=== PATIENT | female | born 2005 | race Asian ===

== ENCOUNTER 2025-10-06 16:04 | Emergency (ER) | payer OTHER, SELFPAY ==
--- NOTE | ~2025-10-06 | XR_ITS ---
EXAMINATION: XR ankle RT min 3V, 10/06/2025 16:27 WHAT JOB TITLES MEAN HISTORY: fall on ice today. Lateral pain right ankle pain, no surg COMPARISON: No comparisons available. Findings: No acute fracture or malalignment. No significant degenerative changes. Soft tissues unremarkable. Impression: No acute fracture or malalignment. Reviewed, dictated and finalized at location P. JOB TITLES MEAN Impression: No acute fracture or malalignment.
[2025-10-06 16:18] VITALS: BP 108/88; PULSE 104; RESP 16; TEMP 37.3; O2SAT 100
--- NOTE | 2025-10-06 16:37 | ED_ITS ---
HPI - Extremity Injury (Lower) General Chief Complaint: Extremity Injury, Lower Stated Complaint: R Ankle Pain Time Seen by Provider: 10/06/25 16:34 Source: patient and RN notes reviewed Mode of arrival: ambulatory Limitations: no limitations History of Present Illness HPI Narrative: 19-year-old female patient presents today complaining of right lateral ankle pain today after slipping on some ice. Denies numbness or tingling. No OTC treatment prior to arrival. Rates her pain 6/10. Denies pain to foot. She has been ambulatory since the injury. Related Data Home Medications ?Medication ?Instructions ?Recorded ?Confirmed ?Last Taken ?Type No Home Medications 10/06/25 10/06/25 U nknown History Allergies Allergy/AdvReac Type Severity Reaction Status Date / Time No Known Allergies Allergy Verified 10/06/25 16:16 PMFSH Comments At time of signature, I have reviewed and agree with nursing past medical, surgical, social and family history unless otherwise noted. Please see nursing chart for further information. There is no relevant family history pertinent to the presenting complaint Exam Narrative: GENERAL: Well-appearing, well-nourished, and in no acute distress. HEAD: Normocephalic, atraumatic. EYES: EOMI. No redness or drainage. Conjunctivae normal. ENT: Mucous membranes pink and moist. NECK: Normal AROM. CHEST: No respiratory distress. EXTREMITIES: Right ankle: Tenderness and mild edema to the lateral malleolus. No tenderness medially or posteriorly. No tenderness to the foot. Distal sensation intact. Capillary refill normal. Decreased range of motion of the ankle due to pain and swelling. SKIN: Warm, dry, no rash. Capillary refill normal. Normal skin turgor. NEURO: No focal deficits. Alert and oriented x3. Gait steady. PSYCH: Normal affect. No signs of depression or anxiety. Course Course Level of Care: Express Care Visit Vital Signs Vital signs: Vital Signs Temperature 99.2 F 10/06/25 16:18 Pulse Rate 104 H 10/06/25 16:18 Respiratory Rate 16 10/06/25 16:18 Blood Pressure 108/88 10/06/25 16:18 Pulse Oximetry 100 10/06/25 16:18 Temperature 99.2 F 10/06/25 16:18 Pulse Rate 104 H 10/06/25 16:18 Respiratory Rate 16 10/06/25 16:18 Blood Pressure 108/88 10/06/25 16:18 Pulse Oximetry 100 10/06/25 16:18 Reviewed MDM MDM Narrative Medical decision making narrative: 19-year-old female patient presents today complaining of right lateral ankle pain today after slipping on some ice. Denies numbness or tingling. No OTC treatment prior to arrival. Rates her pain 6/10. Denies pain to foot. She has been ambulatory since the injury. Upon exam,Tenderness and mild edema to the lateral malleolus. No tenderness medially or posteriorly. No tenderness to the foot. Neurovascularly intact. X-rays normal. Olu wrap applied. Recommend con servative treatment for ankle sprain such as NSAIDs, rest elevation, compression for 7-10 days. If after this period of time symptoms persist, recommend follow- up with PCP or orthopedics. Patient agrees with plan. Vital signs stable. Anticipatory guidance given. Differential Diagnosis Differential Diagnosis: Fracture, sprain Imaging Data Radiologist's impression: ITS Impressions Ankle X-Ray 10/06/25 16:35 Impression: No acute fracture or malalignment. Critical Care Time Critical Care Time Critical Care Time: No Discharge Plan Discharge Clinical Impression: Right ankle sprain Qualifiers: Encounter type: initial encounter Involved ligament of ankle: unspecified ligament Qualified Code(s): S93.401A - Sprain of unspecified ligament of right ankle, initial encounter Patient Disposition: Home Condition: Stable Instructions: Ankle Sprain (DC) Additional Instructions: Your ankle x-ray is negative for fracture. Elevate and ice the ankle. Wear the Olu wrap for comfort and compression. Taking anti-inflammatories such as Aleve or ibuprofen to help with pain and inflammation. Follow-up with your PCP or orthopedics in 7-10 days if symptoms are not improving. Patient Language: Swedish Prescriptions: No Action No Home Medications Follow-up/Referrals: Kleber Lancaster MD [Physician, Orthopedics] PHYSICIAN,CONTAINER PACKER OPERATOR [Primary Care Provider, Internal Medicine] Stand Alone Forms: Work/School Release IP Time of Disposition: 16:44
== END 2025-10-06 16:47 | disposition home or self-care (01) ==
PROVIDERS: Emergency Provider Nurse Practitioner
DX: S93.401A Sprain of unspecified ligament of right ankle, initial encounter (principal); W00.0XXA Fall on same level due to ice and snow, initial encounter
CPT/HCPCS: 73610; 99213; G0463